=== PATIENT | male | born 1960 | race Caucasian/White ===

== ENCOUNTER 2019-08-21 15:58 | Outpatient (CLI) | payer OTHER | END 2019-08-21 23:59 | disposition home or self-care (01) | LOC: CVU 15:58 | PROVIDERS: ATTEND Internal Medicine Cardiovascular Disease | DX: Z13.9 Encounter for screening, unspecified (principal); I36.1 Nonrheumatic tricuspid (valve) insufficiency | CPT/HCPCS: 93306 ==